=== PATIENT | male | born 1940 | race Caucasian/White ===

== ENCOUNTER → 2023-06-06 08:57 | Outpatient (CLI) | payer MEDICARE, SELFPAY ==
--- NOTE | ~2023-06-06 | CT_ITS ---
EXAMINATION: CT diagnostic chest w con DATE: 06/06/2023 09:38 INDICATION: Pleural effusion, not elsewhere classified TECHNIQUE: Computed tomography (CT) of the chest was performed with 100 mL Omnipaque-350 intravenous contrast. Additional 3D reconstructions utilizing coronal maximum intensity projection (MIP) were per formed. Automated exposure control and iterative reconstruction technique were employed. The dose-markell gth product was 611.13 mGy-cm. COMPARISON: None FINDINGS: There is a region of slightly lower density consolidation in the anterior left upper lobe suspicious for postobstructive pneumonia which extends peripherally from a slightly higher density proximally 7 x 4 cm perihilar mass which results in abrupt cut off of the left upper lobe bronchus which is suspic ious for primary bronchogenic carcinoma. There calcified nodules within the left upper lobe and calci fied left hilar and mediastinal lymph nodes consistent with old granulomatous disease but also raises the possibility of fibrosing mediastinitis as etiology for the bronchial obstruction and more periph eral lung disease. Moderate-sized posterior layering left pleural effusion. There are a few small reg ions of tree-in-bud opacity with cluster of a few small centrilobular nodules scattered throughout th e right lung which along with mild bronchial wall thickening suggests an infectious/inflammatory etio logy related to endobronchial spread of disease. Heart size is normal. Small pericardial effusion. At herosclerotic coronary artery calcifications. Aortic valve calcific location. Thoracic aorta is sissy l in caliber with no dissection. Mediastinal lymphadenopathy with multiple mildly enlarged lymph node s measuring up to 1.5 cm in maximal short axis diameter, several of which are paraesophageal and prev ascular which could be either reactive or metastatic. 1.8 cm low-density presternal nodule along the skin surface likely representing a sebaceous cyst. Small sliding-type hiatal hernia. Multiple hepatic and splenic calcifications consistent with old granulomatous disease. Cholecystectomy clips at the g allbladder fossa. Mild upper thoracic levocurvature with moderate spondylosis. IMPRESSION: 1. Moderate-sized left pleural effusion and likely postobstructive pneumonia in the left upper lobe w ith approximately 7 x 4 cm more masslike density in the perihilar left upper lobe which is concerning for primary bronchogenic carcinoma with abrupt cut off of the left upper lobe bronchus. Differential would include postobstructive atelectasis and pneumonia related to fibrosing mediastinitis. Consider either bronchoscopy and/or diagnostic thoracentesis for further evaluation. 2. Mild bronchial wall thickening in a few scattered tree-in-bud opacities in the right lung consiste nt with endobronchial spread of disease most likely pneumonia. 3. Mediastinal lymphadenopathy which could be reactive but which is suspicious for metastatic disease . 4. Small sliding-type hiatal hernia. Reviewed, dictated and finalized at location A. IMPRESSION: 1. Moderate-sized left pleural effusion and likely postobstructive pneumonia in the left upper lobe with approximately 7 x 4 cm more masslike density in the p erihilar left upper lobe which is concerning for primary bronchogenic carcinoma with abrupt cut off of the left upper lobe bronchus. Differential would includ e postobstructive atelectasis and pneumonia related to fibrosing mediastinitis. Consider either bronchoscopy and/or diagnostic thoracentesis for further evalu ation. 2. Mild bronchial wall thickening in a few scattered tree-in-bud opacities in t he right lung consistent with endobronchial spread of disease most likely pneum onia. 3. Mediastinal lymphadenopathy which could be reactive but which is suspici
[2023-06-06 09:21] LABS: Estimated Glomerular Filt Rate > 60
== END ==
PROVIDERS: PCP Internal Medicine; Visit Provider Internal Medicine
DX: J18.9 Pneumonia, unspecified organism (principal); R59.1 Generalized enlarged lymph nodes; K44.9 Diaphragmatic hernia without obstruction or gangrene; J90 Pleural effusion, not elsewhere classified; R91.8 Other nonspecific abnormal finding of lung field
CPT/HCPCS: 71260; Q9967

== ENCOUNTER → 2023-08-02 10:56 | Outpatient (CLI) | payer MEDICARE, SELFPAY ==
--- NOTE | ~2023-08-02 | MR_ITS ---
EXAMINATION: MR brain/brain stem wo/w con DATE: 08/02/2023 12:17 INDICATION: Malignant neoplasm of left lung. TECHNIQUE: Magnetic resonance imaging (MRI) of the brain and brainstem was performed without and with 20 mL MultiHance intravenous contrast. COMPARISON: None. FINDINGS: There are scattered areas of nonspecific increased T2-weighted signal intensity in the cere bral white matter, which is within normal limits for the patient's age. There is no intracranial hemo rrhage, acute infarction, or abnormal intracranial mass lesion. The ventricles are normal in size. Th ere is mild mucosal thickening in the paranasal sinuses. There are likely changes of left ocular lens replacement surgery. The mastoid air cells are normal. IMPRESSION: 1. Normal aging brain. No evidence of metastatic disease. Reviewed, dictated and finalized at location A.
== END ==
PROVIDERS: Visit Provider Internal Medicine Medical Oncology
DX: C34.92 Malignant neoplasm of unspecified part of left bronchus or lung (principal)
CPT/HCPCS: 70553; A9577